=== PATIENT | male | born 1940 | race Caucasian/White ===

== ENCOUNTER 2020-05-28 13:19 | Emergency (ER) | payer MEDICARE ==
[~2020-05-28] VITALS: Ht 182.9 cm; Wt 97.0 kg
[2020-05-28 13:28] VITALS: BP 150/86
[2020-05-28] MEDS ORDERED: CEFAZOLIN 1,000 MG ONE (13:57)
[2020-05-28] MEDS ORDERED: CEFAZOLIN 1,000 MG IM ONE (14:00)
[2020-05-28] MEDS ORDERED: LIDOCAINE-MPF 1%, 5ML INFIL ONE (14:00)
[2020-05-28] MEDS ORDERED: LIDOCAINE-MPF 1%, 5ML ONE (14:07)
[2020-05-28] MEDS ORDERED: NEOSPORIN OINT. PKT 1 PACKET ONE (14:20)
[2020-05-28] MEDS ORDERED: MICROFIBRILLAR COLLAGEN 1 GM TP ONE (14:33)
--- NOTE | 2020-05-28 15:03 | NUR ---
WOUND DRESSED BY FLEXOGRAPHIC PRESS OPERATOR.
== END 2020-05-28 15:05 | disposition home or self-care (01) ==
LOC: ED 13:53
DX: S61.011A Laceration without foreign body of right thumb without damage to nail, initial encounter (principal); I10 Essential (primary) hypertension; E78.00 Pure hypercholesterolemia, unspecified; X50.0XXA Overexertion from strenuous movement or load, initial encounter; Y93.89 Activity, other specified; Y92.009 Unspecified place in unspecified non-institutional (private) residence as the place of occurrence of the external cause; Y99.8 Other external cause status
CPT/HCPCS: 12041; 73130; 96372; 99284; J0690